=== PATIENT | female | born 1955 | race Caucasian/White ===

== ENCOUNTER 2017-08-30 12:23 | Emergency (ER) | payer BC ==
[2017-08-30 12:55] VITALS: BP 122/72
--- NOTE | 2017-08-30 13:26 | UC ---
Lower Extremity/Ankle HPI - HPI Summary HPI Summary: Patient presents with non-traumatic right posterior knee pain. She states while she was walking today it just started to hurt. She states that since then is has been constant pain, worse with weigh bearing activity. Denies any new activity that might explain her pain. - History of Current Complaint Chief Complaint: UCLowerExtremity Stated Complaint: LEG INJURY Time Seen by Provider: 08/30/17 13:04 Hx Obtained From: Patient ?: No Onset/Duration: Sudden Onset, Lasting Hours Severity Initially: Mild Severity Currently: Moderate Pain Intensity: 5 Aggravating Factor(s): Standing, Ambulation Alleviating Factor(s): Rest, Elevation Able to Bear Weight: Yes - Risk Factors Gout Risk Factors: Negative DVT Risk Factors: Negative Septic Arthritis Risk Factor: Negative - Allergies/Home Medications Allergies/Adverse Reactions: Allergies Allergy/AdvReac Type Severity Reaction Status Date / Time Cephalosporins Allergy Hives Verified 08/30/17 12:55 Penicillins Allergy Hives Verified 08/30/17 12:55 Home Medications: Home Medications Aspirin EC Low Dose* [Ecotrin EC Low Dose 81 MG*] 1 tab PO DAILY 08/30/17 [ History Confirmed 08/30/17] Atorvastatin* [Lipitor 10 MG*] 20 mg PO DAILY 08/30/17 [History Confirmed ] Diltiazem XR EXTEND Releas(NF) [Cartia XR (NF)] 1 tab PO DAILY 08/30/17 [ History Confirmed 08/30/17] Ferrous Sulfate TAB* 1 tab PO DAILY 08/30/17 [History Confirmed 08/30/17] Metoprolol Tartrate TAB* [Lopressor TAB*] 1 tab PO BID 08/30/17 [History Confirmed 08/30/17] PMH/Surg Hx/FS Hx/Imm Hx Previously Healthy: Yes - Surgical History Surgical History: Yes Surgery Procedure, Year, and Place: Open heart - Family History Known Family History: Positive: None - Social History Occupation: Employed Full-time Lives: Alone Alcohol Use: None Substance Use Type: None Smoking Status (MU): Never Smoked Tobacco Review of Systems Constitutional: Negative Skin: Negative Eyes: Negative ENT: Negative Respiratory: Negative Cardiovascular: Negative Gastrointestinal: Negative Genitourinary: Negative Motor: Negative Neurovascular: Negative Musculoskeletal: Decreased ROM, Myalgia Neurological: Negative Psychological: Negative Is Patient Immunocompromised?: No All Other Systems Reviewed And Are Negative: Yes Physical Exam Triage Information Reviewed: Yes Appearance: Well-Appearing Vital Signs: Initial Vital Signs Temp 97.6 F 08/30/17 12:52 Pulse 57 08/30/17 12:52 Resp 12 08/30/17 12:52 BP 122/72 08/30/17 12:52 Pulse Ox 100 08/30/17 12:52 Vital Signs Reviewed: Yes Eye Exam: Normal ENT Exam: Normal Neck exam: Normal Neck: Positive: 1 Respiratory Exam: Normal Cardiovascular Exam: Normal Musculoskeletal Exam: Normal Musculoskeletal: Positive: Edema @ - right posterior knee. Neurological Exam: Normal Psychological Exam: Normal Skin Exam: Normal Lower Extremity Course/Dx - Course Course Of Treatment: Patient presents with non-traumatic right knee pain. Clinical exam does reveal swelling behind the knee. She remains neuro-vasc intact. Xrays were obtained and negative. She was provided with crutches and referred to the orthopedist. - Differential Dx/Diagnosis Differential Diagnosis/HQI/PQRI: Sprain, Strain, Other - dewey knee joint Provider Diagnoses: right knee sprain. right knee strain. swollen joint Discharge - Discharge Plan Condition: Stable Disposition: HOME Patient Education Materials: Knee Sprain (DC), Swollen Joint (ED) Referrals: Yuri Valdovinos MD [Medical Doctor] - No Primary Care Phys,NOPCP [Primary Care Provider] -
--- NOTE | 2017-08-30 13:28 | RAD ---
HISTORY: Nontraumatic right knee pain COMPARISONS: None VIEWS: 4, Frontal, lateral, axial, and oblique views of the right knee FINDINGS: BONE DENSITY: Normal. BONES: There is no displaced fracture. JOINTS: There is moderate tricompartmental osteoarthritis. There is no suprapatellar joint effusion or lipohemarthrosis. ALIGNMENT: There is no dislocation. SOFT TISSUES: Unremarkable. OTHER FINDINGS: None. IMPRESSION: OSTEOARTHRITIS. NO ACUTE OSSEOUS INJURY. IF SYMPTOMS PERSIST, RECOMMEND REPEAT IMAGING.
== END 2017-08-30 13:39 | disposition home or self-care (01) ==
LOC: UCEAST 12:23
DX: S83.91XA Sprain of unspecified site of right knee, initial encounter (principal); X58.XXXA Exposure to other specified factors, initial encounter; Y93.01 Activity, walking, marching and hiking; Y92.9 Unspecified place or not applicable
CPT/HCPCS: 99212; G0463

== ENCOUNTER 2021-05-22 06:01 | Observation (INO) ==
[~2021-05-22 06:01] MED LIST: Buffered Lidocaine 1% SYRIN 1 ml INTRADERM ONE; Lactated Ringers 1000 ml BAG 1,000 ML IV SCH
[2021-05-22] MEDS ORDERED: Clindamycin 900 MG/D5W BAG 900 MG/50 ML BAG IVPB ONE (06:18)
[2021-05-22] MEDS ORDERED: Ondansetron 4 mg VIAL 2 MG/ML 2 ml VIAL ONE (06:55)
[2021-05-22] MEDS ORDERED: Dexamethasone IV 4 MG/ML VIAL 1 ml VIAL ONE (06:55)
[2021-05-22] MEDS ORDERED: fentaNYL 100 mcg/2 ml 50 MCG/ML VIAL ONE (06:55)
[2021-05-22] MEDS ORDERED: Midazolam 2 mg/2 ml VIAL 1 mg/ml 2 ml VIAL (2 mg) ONE (06:55)
[2021-05-22] MEDS ORDERED: Propofol 10 MG/ML 20 ML BTL ONE (06:55)
[2021-05-22] MEDS ORDERED: Lidocaine 2% PF 5 ML VIAL ONE (06:55)
[2021-05-22] MEDS ORDERED: Bupivacaine 0.25% SDV 30 ML ONE (07:07)
[2021-05-22] MEDS ORDERED: EPHEDrine (Pressors) 50 MG/ML VIAL ONE ×2 (07:59→08:30)
[2021-05-22] MEDS ORDERED: BUPIVACAINE **LIPOSOME/PF 13.3 MG/ML (266MG/ 20ML) VIAL (RESTRICTED) INFIL ONE (08:00)
[2021-05-22] MEDS ORDERED: Vancomycin 1,000 MG VIAL ONE (08:17)
[2021-05-22] MEDS ORDERED: Acetaminophen IV 1 GM/100ML 100 ML IV ONE ×2 (08:29→08:43)
[2021-05-22] MEDS ORDERED: Ondansetron 4 mg VIAL 2 MG/ML 2 ml VIAL IV PRN (08:43)
[2021-05-22] MEDS ORDERED: DiMENhydriNATE IV 50 mg/ml 1 ml VIAL IV PUSH PRN (08:43)
[2021-05-22] MEDS ORDERED: Naloxone 0.4 mg VIAL 0.4 mg/ml 1 ml VIAL IV PRN (08:43)
[2021-05-22] MEDS ORDERED: HYDROmorphone 1 MG/1 ML SYRINGE IV PRN (08:43)
[2021-05-22] MEDS ORDERED: fentaNYL 100 mcg/2 ml 50 MCG/ML VIAL IV PRN (08:43)
[2021-05-22] MEDS ORDERED: Phenylephrine 40 mcg/mL 10mL (400mcg) SYRINGE ONE (09:47)
[2021-05-22] MEDS ORDERED: Magnesium Hydroxide LIQ 30 ML UDC PO PRN (10:32)
[2021-05-22] MEDS ORDERED: diPHENhydraMINE 25 mg TAB PO PRN (10:32)
[2021-05-22] MEDS ORDERED: Morphine 2 MG/ML SYRINGE IV PRN (10:32)
[2021-05-22] MEDS ORDERED: diPHENhydraMINE IV 50 MG/ML 1 ml VIAL (BENADRYL) IV PRN (10:32)
[2021-05-22] MEDS ORDERED: Ondansetron ODT 4 mg TAB 4 MG TAB PO PRN (10:32)
[2021-05-22] MEDS ORDERED: Lactulose 30 ml UDC PO PRN (10:32)
[2021-05-22] MEDS: Lactated Ringers 1000 ml BAG 1,000 ML IV SCH ×2 (12:37→23:31)
[2021-05-22] MEDS: Ondansetron 4 mg VIAL 2 MG/ML 2 ml VIAL IV PRN (16:23)
[2021-05-22] MEDS: Clindamycin 600 MG/D5W BAG 600 MG/50 ML BAG IV SCH (16:54)
[2021-05-22] MEDS: MAGNESIUM GLYCINATE 100 MG PO SCH (16:59)
[2021-05-22] MEDS: Potassium Chlor 20 meq TAB.ER PO SCH (21:08)
[2021-05-22] MEDS: Potassium Chlor 10 meq TAB PO SCH (21:08)
[2021-05-22] MEDS: Magnesium Hydroxide LIQ 30 ML UDC PO SCH (21:09)
[2021-05-23] MEDS: Clindamycin 600 MG/D5W BAG 600 MG/50 ML BAG IV SCH ×2 (00:33→09:18)
[2021-05-23] MEDS: Ondansetron 4 mg VIAL 2 MG/ML 2 ml VIAL IV PRN (03:48)
[2021-05-23] MEDS ORDERED: Prochlorperazine 5 mg/ml 2 ml VIAL (10 mg) IV ONE (06:41)
[2021-05-23 07:09] LABS: Hematocrit 32 % (35-47); Hemoglobin 11.4 g/dL (12.0-16.0); Mean Platelet Volume 9.3 fL (7.4-10.4); Platelet Count 119 10^3/uL (150-450)
[2021-05-23 07:22] LABS: Calcium 8.6 mg/dL (8.6-10.3)
[2021-05-23] MEDS ORDERED: Pneumococcal Vac 23-Polyvalent IM ONE (09:00)
[2021-05-23] MEDS: Aspirin EC 81 mg TAB.EC (enteric coated) PO SCH (10:17)
[2021-05-23] MEDS: Magnesium Hydroxide LIQ 30 ML UDC PO SCH ×2 (10:18→20:44)
[2021-05-23] MEDS: Potassium Chlor 10 meq TAB PO SCH ×2 (10:19→20:43)
[2021-05-23] MEDS: Vitamin THERAPEUTIC TAB PO SCH (10:19)
[2021-05-23] MEDS: Potassium Chlor 20 meq TAB.ER PO SCH ×2 (10:19→20:43)
[2021-05-23 13:32] LABS: Calcium 8.5 mg/dL (8.6-10.3); Potassium 4.2 mmol/L (3.5-5.0)
[2021-05-23] MEDS: MAGNESIUM GLYCINATE 100 MG PO SCH (14:44)
[2021-05-24 06:34] LABS: Hematocrit 28 % (35-47); Hemoglobin 9.8 g/dL (12.0-16.0); Mean Platelet Volume 9.3 fL (7.4-10.4); Platelet Count 80 10^3/uL (150-450)
[2021-05-24 06:44] LABS: Calcium 8.4 mg/dL (8.6-10.3); Potassium 3.7 mmol/L (3.5-5.0)
[2021-05-24] MEDS: Vitamin THERAPEUTIC TAB PO SCH (09:15)
[2021-05-24] MEDS: Potassium Chlor 20 meq TAB.ER PO SCH (09:16)
[2021-05-24] MEDS: Magnesium Hydroxide LIQ 30 ML UDC PO SCH (09:17)
[2021-05-24] MEDS: Potassium Chlor 10 meq TAB PO SCH (09:17)
[2021-05-24] MEDS: Aspirin EC 81 mg TAB.EC (enteric coated) PO SCH (09:17)
[2021-05-24 11:35] VITALS: BP 120/56
== END 2021-05-24 13:02 | disposition home or self-care (01) ==
LOC: OR 06:01 → SSU 06:01
PROVIDERS: ADMIT Orthopaedic Surgery Sports Medicine; ATTEND Orthopaedic Surgery Sports Medicine